=== PATIENT | female | born 1940 | race American Indian/Alaskan Native ===

== ENCOUNTER 2021-11-01 10:37 | Outpatient (CLI) | payer MEDICARE ==
--- NOTE | 2021-11-01 13:28 | Cat Scan Report ---
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 TECHNIQUE: Axial CT images were obtained through the abdomen and pelvis without IV contrast. Sagittal and mueller l reformatted images. All CT scans at this location are performed using CT dose reduction for ALARA b y means of automated exposure control. COMPARISON: None available. FINDINGS: LOWER CHEST: No significant abnormality. No suspicious pulmonary lesion. LIVER: No significant abnormality. GALLBLADDER: No significant abnormality. BILE DUCTS: No significant abnormality. PANCREAS: No significant abnormality. SPLEEN: No significant abnormality. ADRENALS: No significant abnormality. RIGHT KIDNEY and URETER: No significant abnormality. LEFT KIDNEY and URETER: Few small renal calyceal stones are identified. No hydronephrosis. STOMACH and SMALL BOWEL: No significant abnormality. COLON: No significant abnormality. Mild diverticulosis of the distal colon is noted. APPENDIX: No significant abnormality. PERITONEUM: No free fluid. No free air. No fluid collection. LYMPH NODES: No significant adenopathy. AORTA and ARTERIES: Severe atherosclerotic calcification without acute abnormality. IVC and VEINS: No significant abnormality. URINARY BLADDER: No significant abnormality. No obvious recurrent bladder mass is detected. REPRODUCTIVE ORGANS: No significant abnormality. ADDITIONAL FINDINGS: None. SKELETAL SYSTEM: Mild levocurvature of the lumbar spine moderate multilevel thoracolumbar spondylosis . No suspicious bony lesion is detected. IMPRESSION: No acute process. No evidence for recurrent or metastatic disease in the abdomen or pelvis. Nonobstructing left nephrolithiasis. Sigmoid diverticulosis. Severe atherosclerotic disease. Signer Name: Neri Syed Jr, MD Signed: 11/01/2021 1:24 PM Workstation Name: [id number]
== END 2021-11-01 10:38 | disposition home or self-care (01) ==
LOC: CT 10:37
PROVIDERS: ATTEND Urology
DX: K57.30 Diverticulosis of large intestine without perforation or abscess without bleeding (principal); N20.0 Calculus of kidney; M43.8X6 Other specified deforming dorsopathies, lumbar region; M47.815 Spondylosis without myelopathy or radiculopathy, thoracolumbar region; I25.10 Atherosclerotic heart disease of native coronary artery without angina pectoris; C67.4 Malignant neoplasm of posterior wall of bladder
CPT/HCPCS: 74176